=== PATIENT | female | born 1985 | race Caucasian/White ===

== ENCOUNTER → 2023-03-30 09:25 | Outpatient (REF) | payer BC, SELFPAY | LOC: RAD 09:25 | PROVIDERS: ATTENDING PHYSICIAN Physician Assistant | DX: M79.674 Pain in right toe(s) (principal) | CPT/HCPCS: 73630 ==

== ENCOUNTER → 2023-09-22 08:03 | Outpatient (REF) | payer BC, SELFPAY ==
[2023-09-22 08:56] LABS: ALT (SGPT) 19 U/L (0-35); AST (SGOT) 18 U/L (14-36); Albumin 4.4 g/dl (3.5-5.0); Alkaline Phosphatase 81 U/L (38-126); Blood Urea Nitrogen 20 mg/dl (7-17); Calcium 9.7 mg/dl (8.4-10.2); Carbon Dioxide 27 mmol/L (22-30); Chloride 105 mmol/L (98-107); Glucose 101 mg/dl (70-99); HDL Cholesterol 49 mg/dl; LDL Cholesterol, Calculated 135 mg/dl; Potassium 4.7 mmol/L (3.5-5.1); Sodium 140 mmol/L (135-145); Total Bilirubin 0.6 mg/dl (0.2-1.3); Total Cholesterol 200 mg/dl (50-199); Total Protein 7.2 g/dl (6.3-8.2); Triglyceride 84 mg/dl (10-149); Very Low Density Lipoprotein 16 mg/dl (0-30); eGFR > 60.00
== END ==
LOC: REG 08:03
PROVIDERS: ATTENDING PHYSICIAN Nurse Practitioner Women's Health
DX: C53.9 Malignant neoplasm of cervix uteri, unspecified (principal); E28.39 Other primary ovarian failure; R68.82 Decreased libido; R53.83 Other fatigue
CPT/HCPCS: 80053; 80061; 84270; 84402; 84403

== ENCOUNTER → 2024-09-02 07:19 | Outpatient (REF) | payer BC, SELFPAY ==
[2024-09-02 08:01] LABS: % Basophils 0.8 % (0-2); % Eosinophils 2.4 % (0-6); % Immature Granulocytes 0.2 % (0-0.5); % Lymphocytes 26.5 % (20.5-51.1); % Monocytes 7.3 % (1.7-9.3); % Neutrophils 62.8 % (42.2-75.2); Absolute Eosinophils 0.1 10^3/uL (0-0.7); Absolute Lymphocytes 1.3 10^3/uL (1.2-3.4); Absolute Monocytes 0.4 10^3/uL (0.1-0.6); Absolute Neutrophils 3.2 10^3/uL (1.4-6.5); Hematocrit 39.7 % (37.0-47.0); Hemoglobin 13.3 g/dL (12.0-16.0); Mean Corp Hgb Conc. 33.5 g/dL (33.0-37.0); Mean Corpuscular Hgb 30.4 pg (27.0-31.0); Mean Corpuscular Volume 90.6 fL (81.0-99.0); Mean Platelet Volume 10.6 fL (7.4-10.4); Nucleated Red Blood Cells % 0 %; Platelet Count 209 10^3/uL (130-400); Red Blood Cell Count 4.38 10^6/uL (4.20-5.40); Red Cell Dist. Width 12.1 % (11.5-14.5); White Blood Cell Count 5.1 10^3/uL (4.8-10.8)
[2024-09-02 08:08] LABS: ALT (SGPT) 36 U/L (0-35); AST (SGOT) 21 U/L (14-36); Albumin 4.8 g/dl (3.5-5.0); Alkaline Phosphatase 68 U/L (38-126); Blood Urea Nitrogen 23 mg/dl (7-17); Calcium 9.4 mg/dl (8.4-10.2); Carbon Dioxide 28 mmol/L (22-30); Chloride 107 mmol/L (98-107); Glucose 112 mg/dl (70-99); HDL Cholesterol 45 mg/dl; Iron 66 ug/dl (37-170); LDL Cholesterol, Calculated 152 mg/dl; Potassium 4.6 mmol/L (3.5-5.1); Sodium 143 mmol/L (135-145); Total Bilirubin 0.6 mg/dl (0.2-1.3); Total Cholesterol 214 mg/dl (50-199); Total Protein 7.4 g/dl (6.3-8.2); Triglyceride 88 mg/dl (10-149); Very Low Density Lipoprotein 17 mg/dl (0-30); eGFR > 60.00
[2024-09-02 08:57] LABS: Vitamin B12 670 pg/ml (239-931)
[2024-09-02 10:52] LABS: Glycohemoglobin (HgbA1c) 5.6 % (4.0-5.6)
[2024-09-03 19:33] LABS: Vitamin D, 25-OH*** 35.9 ng/mL (30-80)
[2024-09-03 19:49] LABS: Estradiol 27.9 pg/ml
[2024-09-04 19:33] LABS: Transferrin 237 mg/dL (200-360)
== END ==
LOC: OLAB 07:19
PROVIDERS: ATTENDING PHYSICIAN Family Medicine
DX: E89.40 Asymptomatic postprocedural ovarian failure (principal); Y84.2 Radiological procedure and radiotherapy as the cause of abnormal reaction of the patient, or of later complication, without mention of misadventure at the time of the procedure
CPT/HCPCS: 80053; 80061; 82306; 82607; 82670; 83036; 83540; 83735; 84270; 84402; 84403; 84466; 85025

== ENCOUNTER → 2024-10-31 09:22 | Outpatient (REF) | payer BC, SELFPAY ==
[2024-10-31 09:52] LABS: Hematocrit 40.1 % (37.0-47.0); Hemoglobin 13.6 g/dL (12.0-16.0); Mean Corp Hgb Conc. 33.9 g/dL (33.0-37.0); Mean Corpuscular Volume 89.7 fL (81.0-99.0); Nucleated Red Blood Cells % 0 %; Platelet Count 217 10^3/uL (130-400); Red Cell Dist. Width 12.3 % (11.5-14.5)
[2024-10-31 10:06] LABS: ALT (SGPT) 20 U/L (0-35); AST (SGOT) 16 U/L (14-36); Albumin 4.7 g/dl (3.5-5.0); Alkaline Phosphatase 66 U/L (38-126); Blood Urea Nitrogen 16 mg/dl (7-17); Calcium 9.3 mg/dl (8.4-10.2); Carbon Dioxide 27 mmol/L (22-30); Chloride 109 mmol/L (98-107); Glucose 109 mg/dl (70-99); HDL Cholesterol 41 mg/dl; Iron 80 ug/dl (37-170); LDL Cholesterol, Calculated 140 mg/dl; Magnesium 2.0 mg/dl (1.6-2.3); Potassium 4.7 mmol/L (3.5-5.1); Sodium 141 mmol/L (135-145); Total Protein 7.7 g/dl (6.3-8.2); Very Low Density Lipoprotein 20 mg/dl (0-30); eGFR > 60.00
[2024-10-31 10:21] LABS: Vitamin D, 25-OH*** 37.0 ng/mL (30-80)
[2024-10-31 10:54] LABS: Vitamin B12 591 pg/ml (239-931)
[2024-10-31 13:02] LABS: Glycohemoglobin (HgbA1c) 5.5 % (4.0-5.6)
[2024-11-02 00:31] LABS: Transferrin 238 mg/dL (200-360)
[2024-11-05 21:56] LABS: Total Testosterone,Female/Chil 10 ng/dL (9-55)
== END ==
LOC: REG 09:22
PROVIDERS: ATTENDING PHYSICIAN Nurse Practitioner Women's Health; FAMILY PHYSICIAN Family Medicine
DX: E89.40 Asymptomatic postprocedural ovarian failure (principal); Y84.2 Radiological procedure and radiotherapy as the cause of abnormal reaction of the patient, or of later complication, without mention of misadventure at the time of the procedure
CPT/HCPCS: 80053; 80061; 82306; 82607; 82670; 83036; 83540; 83735; 84270; 84402; 84403; 84466; 85025